=== PATIENT | male | born 1965 | race Caucasian/White ===

== ENCOUNTER 2019-06-12 16:06 | Emergency (ER) | payer BC ==
[~2019-06-12] VITALS: Ht 185.4 cm; Wt 138.0 kg
--- NOTE | 2019-06-12 16:07 | NUR ---
PT BIB [facility] S/P FALL OFF LADDER APPROX. 3 FEET. PT ARRIVED ON ROOM AIR, RIGHT UPPER EXTREMITY IN SLING WITH OBVIOUS DEFORMITY. PT AAO X 4, ROOM AIR, CALL LIGHT WITHIN REACH. PT ON FULL MONITOR, PIV ESTABLISHED BY EMS EN ROUTE. PER EMS, PIV ESTBALISHED EN ROUTE AND PT RECEIVED 2.5MG IVP VERSED, 6MG IVP MORPHINE, AND 4MG IVP ZOFRAN. THIS RN CONTACTED PT'S .
[2019-06-12] MEDS ORDERED: HYDROmorphone 1 MG/ML, 1ML INJ ONE ×2 (16:13→17:41)
[2019-06-12] MEDS ORDERED: ONDANSETRON 2MG/ML, 2ML ONE (16:13)
[2019-06-12] MEDS: HYDROmorphone 1 MG/ML, 1ML INJ IVPush PRN ×2 (16:16→17:46)
--- NOTE | 2019-06-12 16:16 | NUR ---
PT MEDICATED PER ORDERS.
[2019-06-12] MEDS ORDERED: ONDANSETRON 2MG/ML, 2ML IVPush ONE (16:30)
--- NOTE | 2019-06-12 16:35 | NUR ---
PT TO XRAY.
--- NOTE | 2019-06-12 16:50 | NUR ---
PT BACK FROM XRAY.
[2019-06-12] MEDS ORDERED: PLEASE ENTER ALLERGIES MC SCH (17:00)
--- NOTE | 2019-06-12 17:46 | NUR ---
PT MEDICATED PER [facility], PLAN FOR SPLINT.
[2019-06-12 17:47] VITALS: BP 141/74
--- NOTE | 2019-06-12 17:56 | NUR ---
TECH AT BEDSIDE FOR SPLINT APPLICATION.
--- NOTE | 2019-06-12 18:19 | NUR ---
SPLINT COMPLETED BY FLOR PT ON 2L NC FOR DESAT S/P PAIN MEDICINE, PT STATES HE WEARS CPAP AT HOME.
--- NOTE | 2019-06-12 18:32 | NUR ---
Patient/Caregiver given discharge instructions and they have confirmed that they understand the instructions. Patient ambulatory with steady gait.
== END 2019-06-12 18:56 | disposition home or self-care (01) ==
LOC: ED 18:30
DX: S42.321A Displaced transverse fracture of shaft of humerus, right arm, initial encounter for closed fracture (principal); W11.XXXA Fall on and from ladder, initial encounter; Y93.89 Activity, other specified; Y92.098 Other place in other non-institutional residence as the place of occurrence of the external cause; Y99.8 Other external cause status
CPT/HCPCS: 29105; 73060; 96374; 96375; 96376; 99284; J1170; J2405